=== PATIENT | female | born 1995 | race Caucasian/White ===

== ENCOUNTER 2018-11-30 07:32 | Day surgery (SDC) | payer OTHER ==
[2018-11-27 10:06] LABS: APPEARANCE,URINE CLEAR; BILIRUBIN,URINE NEGATIVE (NEGATIVE); COLOR,URINE YELLOW; GLUCOSE, URINE NEGATIVE (NEGATIVE); KETONES,URINE NEGATIVE (NEGATIVE); LEUKOCYTE ESTERASE,URINE NEGATIVE (NEGATIVE); NITRITE,URINE NEGATIVE (NEGATIVE); PROTEIN,URINE NEGATIVE (NEGATIVE); URINE SPECIFIC GRAVITY 1.006; UROBILINOGEN,URINE NEGATIVE mg/dL (<2.0)
[2018-11-27 10:10] LABS: HEMATOCRIT 41.2 % (36.0-47.0); HEMOGLOBIN 14.3 g/dL (12.0-15.5); MEAN CORPUSCULAR HEMOGLOBIN 31.2 pg (27.0-33.4); MEAN CORPUSCULAR HGB CONC 34.8 g/dL (32.0-36.0); MEAN CORPUSCULAR VOLUME 90 fl (80-97); PLATELET COUNT 227 10^3/uL (150-450); RED CELL DISTRIBUTION WIDTH 12.2 % (11.5-14.0); WHITE BLOOD COUNT 5.2 10^3/uL (4.0-10.5)
[~2018-11-30 07:32] MED LIST: FENTANYL CITRATE INJ/PF 100 MCG/2 ML AMPUL ONE; LIDOCAINE 0.5% INJ-PF (5 MG/ML) 50 ML SDV ONE; MIDAZOLAM 2 MG/2 ML INJ ONE; ONDANSETRON HCL INJ/PF 4 MG/2 ML SDV ONE; PROPOFOL INJ 200 MG/20 ML VIAL IV ONE
[2018-11-30] MEDS ORDERED: SCOPOLAMINE HYDROBROMIDE 1.5 MG PATCH.TD72 ONE (08:51)
[2018-11-30] MEDS ORDERED: SCOPOLAMINE HYDROBROMIDE 1.5 MG PATCH.TD72 TD ONE (09:15)
[2018-11-30] MEDS ORDERED: FENTANYL CITRATE INJ/PF 100 MCG/2 ML AMPUL IV PRN ×3 (09:42)
[2018-11-30] MEDS ORDERED: MORPHINE SULFATE 10 MG/ML INJ IV PRN (09:42)
[2018-11-30] MEDS ORDERED: ONDANSETRON HCL INJ/PF 4 MG/2 ML SDV IV PRN (09:42)
[2018-11-30] MEDS ORDERED: PROMETHAZINE HCL INJ 25 MG/1 ML VIAL IV PRN ×2 (09:42)
[2018-11-30] MEDS ORDERED: MEPERIDINE HCL/PF INJ 25 MG/1 ML DISP.SYRIN IV PRN (09:42)
[2018-11-30] MEDS ORDERED: DIPHENHYDRAMINE HCL 50 MG/ML VIAL IV PRN (09:42)
[2018-11-30] MEDS ORDERED: IBUPROFEN 800 MG TABLET PO PRN (09:49)
[2018-11-30] MEDS ORDERED: RINGERS SOLUTION,LACTATED 1,000 ML IV PRN (09:49)
[2018-11-30] MEDS ORDERED: OXYCODONE-ACETAMINOPHEN 5-325 MG TABLET PO PRN ×2 (09:49)
[2018-11-30] MEDS ORDERED: KETOROLAC TROMETHAMINE INJ/PF 30 MG/1 ML SDV IV PRN (09:49)
--- NOTE | 2018-11-30 09:54 | Operative Report ---
Operative Report DATE OF SURGERY: 11/30/18 PREOPERATIVE DIAGNOSIS: Irregular menses after miscarriage, suspected retained products on ultrasound POSTOPERATIVE DIAGNOSIS: Empty uterine cavity OPERATION: Hysteroscopy with ceci and nir SURGEON: CORIN BORREGO ANESTHESIA: GA TISSUE REMOVED OR ALTERED: Uterine cavity COMPLICATIONS: None ESTIMATED BLOOD LOSS: Minimal INTRAOPERATIVE FINDINGS: The uterine cavity appeared empty with just endometrial proliferation PROCEDURE: Patient was taken the OR and placed in supine position. General anesthesia was induced. She is placed in dorsolithotomy position using Benjamin stirrups. Her perineum and vagina were prepared and draped in sterile fashion. She had just voided and did not need catheterization. A speculum was placed in the vagina and the anterior lip cervix grasped with a tenaculum. Sound was 2 7 cm before and after the case. The cervix was dilated without difficulty and the hysteroscope inserted. The ultrasound had shown a echogenic material in the fundus of the uterus. And this was thought to be retained products. Hysteroscope showed a empty uterine cavity. Sharp curettage was performed with good cry noted on all 4 uterine russell. At the end of the case all instruments were withdrawn. The specimens was sent for pathology. The patient was placed back in supine position out of anesthesia and taken recovery in stable condition.
--- NOTE | 2018-11-30 09:56 | Discharge Summary ---
Discharge Summary (SDC) - Discharge Final Diagnosis: Irregular menses Date of Surgery: 11/30/18 Discharge Date: 11/30/18 Condition: Good [facility]errals: [facility] [[facility] - Discharge Diet: Regular Discharge Activity: Balance Activity w/Rest, Pelvic Rest Report the Following to Your Physician Immediately: Increase in Pain, Fever over 101 Degrees
[2018-11-30] MEDS ORDERED: FENTANYL CITRATE INJ/PF 100 MCG/2 ML AMPUL ONE (09:59)
[2018-11-30 11:33] VITALS: BP 103/59
== END 2018-11-30 11:25 | disposition home or self-care (01) ==
LOC: OROUT 07:32
PROVIDERS: ATTEND Obstetrics & Gynecology
DX: N92.6 Irregular menstruation, unspecified (principal); E03.9 Hypothyroidism, unspecified; Z87.891 Personal history of nicotine dependence; Z88.2 Allergy status to sulfonamides
CPT/HCPCS: 36415; 85027; 81025; 81001; 88305 ×2; 58558; J2250; J3010; J3490; J2405; J2704; 952